=== PATIENT | male | born 1960 | race Hispanic/Latino ===

== ENCOUNTER → 2019-05-24 | Outpatient (CLI) | payer MEDICAID ==
[~2019-05-24] MED LIST: IOHEXOL 350 MG/ML 100ML INFUS..BTL IV ONE
== END | disposition home or self-care (01) ==
LOC: RAH 13:43
PROVIDERS: ATTEND Otolaryngology
DX: C32.9 Malignant neoplasm of larynx, unspecified (principal); C78.39 Secondary malignant neoplasm of other respiratory organs; J43.2 Centrilobular emphysema; R91.1 Solitary pulmonary nodule; J98.11 Atelectasis; K44.9 Diaphragmatic hernia without obstruction or gangrene; R59.9 Enlarged lymph nodes, unspecified; Z93.0 Tracheostomy status
CPT/HCPCS: 70491; 71260; Q9967

== ENCOUNTER → 2019-09-13 | Outpatient (CLI) | payer MEDICAID ==
--- NOTE | 2019-09-13 11:00 | NUR ---
MBSS COMPLETED NO ASPIRATION. RECOMMEND REGULAR SOLIDS, THIN LIQUIDS, PILLS WHOLE WITH LIQUIDS TOLERATED. RETAIL SELLING SPECIALIST REVIEWED RESULTS AND RECOMMENDATION WITH Pt. GI CONSULT RECOMMENDED DUE TO PEG FEEDINGS. ALL QUESTIONS ANSWERED AT THIS TIME. Addendum: 09/13/[address] YANCI ALARCON Amended: Links added.
== END | disposition home or self-care (01) ==
LOC: RAH 10:24
PROVIDERS: ATTEND Otolaryngology
DX: Z08 Encounter for follow-up examination after completed treatment for malignant neoplasm (principal); Z85.9 Personal history of malignant neoplasm, unspecified
CPT/HCPCS: 74230; 92611